=== PATIENT | female | born 1975 | race Caucasian/White ===

== ENCOUNTER 2017-11-17 16:22 | Emergency (ER) | payer BC ==
[~2017-11-17] VITALS: Ht 154.9 cm; Wt 54.9 kg
[2017-11-17 16:26] VITALS: Ht 154.9 cm; Wt 54.9 kg
[2017-11-17 17:58] VITALS: BP 133/94
== END 2017-11-17 17:58 | disposition home or self-care (01) ==
LOC: ED 16:22
DX: S61.211A Laceration without foreign body of left index finger without damage to nail, initial encounter (principal); W26.0XXA Contact with knife, initial encounter; Y93.89 Activity, other specified; Y99.8 Other external cause status; Y92.090 Kitchen in other non-institutional residence as the place of occurrence of the external cause
CPT/HCPCS: 90715

== ENCOUNTER 2017-11-19 13:36 | Emergency (ER) | payer BC ==
[~2017-11-19] VITALS: Ht 157.5 cm; Wt 55.3 kg
[2017-11-19 13:48] VITALS: BP 114/70; Ht 157.5 cm; Wt 55.3 kg
== END 2017-11-19 14:55 | disposition home or self-care (01) ==
LOC: ED 13:36
DX: S61.211D Laceration without foreign body of left index finger without damage to nail, subsequent encounter (principal); X58.XXXD Exposure to other specified factors, subsequent encounter

== ENCOUNTER 2017-11-25 13:27 | Emergency (ER) | payer BC ==
[~2017-11-25] VITALS: Ht 157.5 cm; Wt 56.7 kg
[2017-11-25 14:13] VITALS: BP 123/87; Ht 157.5 cm; Wt 56.7 kg
== END 2017-11-25 15:07 | disposition home or self-care (01) ==
LOC: ED 13:27
DX: S61.211D Laceration without foreign body of left index finger without damage to nail, subsequent encounter (principal); X58.XXXD Exposure to other specified factors, subsequent encounter